=== PATIENT | male | born 1950 | race Hispanic/Latino ===

== ENCOUNTER 2024-05-16 18:12 | Inpatient (IN) | payer OTHER ==
[~2024-05-16] VITALS: Ht 185.4 cm; Wt 81.6 kg
[2024-05-16] MEDS: ONDANSETRON HCL INJ 2MG/ML 2ML 2 MG/ML VIAL IV STA (18:48)
[2024-05-16] MEDS: SODIUM CHLORIDE 0.9% 1000ML 1,000 ML IV SCH (18:52)
[2024-05-16] MEDS: Morphine 4mg INJECTION 4 MG/ML INJ IV ONE (19:11)
[2024-05-16] MEDS ORDERED: Morphine 2mg Syringe 2 MG/ML SYR ONE (19:11)
[2024-05-16 19:24] LABS: BASOPHILS % 0.3 % (0.0-1.0); EOSINOPHILS % 0.1 % (0.0-6.0); HEMATOCRIT 45.6 % (38.2-49.6); HEMOGLOBIN 15.1 g/dL (14.0-18.0); LYMPHOCYTES # (AUTO) 1.3 (1.0-3.2); LYMPHOCYTES % 12.6 % (18.0-39.1); MEAN CORPUSCULAR HEMOGLOBIN 31.4 pg (28-32); MEAN CORPUSCULAR HGB CONC 33.1 g/dL (31-35); MEAN CORPUSCULAR VOLUME 94.8 fL (81-99); MONOCYTES # (AUTO) 0.8 (0.2-0.8); MONOCYTES % 7.6 % (4.4-11.3); NEUTROPHILS % 79.3 % (38.7-80.0); PLATELET COUNT 143 x10e3/uL (140-360); RED BLOOD COUNT 4.81 x10e6/uL (4.3-5.7); RED CELL DISTRIBUTION WIDTH 12.5 % (11.7-14.4); WHITE BLOOD COUNT 10.07 x10e3/uL (4.8-10.8)
[2024-05-16 19:25] LABS: INR 0.99; PROTHROMBIN TIME 13.6 seconds (11.9-14.5)
[2024-05-16 19:26] LABS: PARTIAL THROMBOPLASTIN TIME 29.9 seconds (23.8-35.5)
[2024-05-16 19:30] LABS: COLOR,URINE YELLOW (YELLOW)
[2024-05-16 19:31] LABS: BILIRUBIN,URINE NEGATIVE (NEGATIVE); CLARITY,URINE CLOUDY (CLEAR); GLUCOSE, URINE NEGATIVE (NEGATIVE); KETONES,URINE 1+ (NEGATIVE); LEUKOCYTE ESTERASE ,URINE NEGATIVE (NEGATIVE); NITRITE,URINE NEGATIVE (NEGATIVE); PH,URINE 5.5 (5 - 7); PROTEIN,URINE DIPSTICK TRACE (NEGATIVE); URINE UROBILINOGEN 0.2 mg/dL (0.2 - 1)
[2024-05-16 19:35] LABS: AMORPHOUS SEDIMENT,URINE MODERATE (FEW); BACTERIA,URINE MANY /HPF; EPITHELIAL CELLS,URINE FEW /LPF; RBC,URINE 21-50 /HPF (0-5); URIC ACID CRYSTALS,URINE MANY (FEW)
[2024-05-16 19:36] LABS: ANION GAP 16.6 mmol/L (8-16); BILIRUBIN,TOTAL 0.7 mg/dL (0.2-1.2); CALCIUM 9.8 mg/dL (8.4-10.2); CREATININE, SERUM 1.15 mg/dL (0.72-1.25); POTASSIUM 3.6 mmol/L (3.5-5.1); TOTAL PROTEIN 8.2 g/dL (6.5-8.1)
[2024-05-16 19:42] LABS: TROPONIN I 0.001 ng/mL (0-0.300)
[2024-05-16] MEDS ORDERED: IOPAMIDOL 370 MG/ML 100 ML INFUS..BTL INJ ONE (19:52)
[2024-05-16] MEDS ORDERED: Morphine 4mg INJECTION 4 MG/ML INJ IV PRN (22:45)
[2024-05-16] MEDS ORDERED: SODIUM CHLORIDE FLUSH 10 ML SYR INJ PRN (22:45)
[2024-05-16] MEDS ORDERED: ONDANSETRON HCL INJ 2MG/ML 2ML 2 MG/ML VIAL IV PRN (22:45)
[2024-05-17] VITALS (9 sets, daily range): BP systolic 152–206; BP diastolic 68–72; PULSE 52–59; RESP 14–18; TEMP 97.3–98.5; O2SAT 97–99
[2024-05-17 03:38] LABS: BASOPHILS % 0.3 % (0.0-1.0); EOSINOPHILS % 0.4 % (0.0-6.0); HEMATOCRIT 38.2 % (38.2-49.6); HEMOGLOBIN 12.7 g/dL (14.0-18.0); LYMPHOCYTES # (AUTO) 1.4 (1.0-3.2); LYMPHOCYTES % 19.2 % (18.0-39.1); MEAN CORPUSCULAR HEMOGLOBIN 31.5 pg (28-32); MEAN CORPUSCULAR HGB CONC 33.2 g/dL (31-35); MEAN CORPUSCULAR VOLUME 94.8 fL (81-99); MONOCYTES # (AUTO) 0.7 (0.2-0.8); MONOCYTES % 10.1 % (4.4-11.3); NEUTROPHILS % 69.9 % (38.7-80.0); PLATELET COUNT 124 x10e3/uL (140-360); RED BLOOD COUNT 4.03 x10e6/uL (4.3-5.7); RED CELL DISTRIBUTION WIDTH 12.7 % (11.7-14.4)
[2024-05-17 03:51] LABS: ALBUMIN 3.2 g/dL (3.5-5.0); ANION GAP 12.7 mmol/L (8-16); BILIRUBIN,TOTAL 0.6 mg/dL (0.2-1.2); CALCIUM 8.6 mg/dL (8.4-10.2); CREATININE, SERUM 0.84 mg/dL (0.72-1.25); POTASSIUM 3.7 mmol/L (3.5-5.1)
[2024-05-17 03:57] LABS: TOTAL PROTEIN 6.5 g/dL (6.5-8.1); TROPONIN I 0.003 ng/mL (0-0.300)
[2024-05-17] MEDS ORDERED: SODIUM CHLORIDE 0.9% 1000ML 1,000 ML ONE (06:42)
[2024-05-17] MEDS: LISINOPRIL 20 MG TAB PO SCH (11:14)
[2024-05-17] MEDS: POTASSIUM CHLORIDE 20 MEQ TAB CR PO STA (14:24)
[2024-05-17] MEDS: SODIUM CHLORIDE 0.9% 1000ML 1,000 ML IV SCH (14:24)
[2024-05-17] MEDS: NIFEDIPINE CR 30 MG TAB PO SCH (15:31)
[2024-05-17 17:14] LABS: TROPONIN I 0.004 ng/mL (0-0.300)
[2024-05-18] VITALS (10 sets, daily range): BP systolic 75–159; BP diastolic 56–84; PULSE 57–144; RESP 18–20; TEMP 97.9–98.3; O2SAT 96–97
[2024-05-18 06:47] LABS: BASOPHILS % 0.5 % (0.0-1.0); EOSINOPHILS # (AUTO) 0.1 (0.0-0.4); EOSINOPHILS % 1.8 % (0.0-6.0); HEMATOCRIT 39.4 % (38.2-49.6); HEMOGLOBIN 12.8 g/dL (14.0-18.0); LYMPHOCYTES # (AUTO) 1.2 (1.0-3.2); LYMPHOCYTES % 19.8 % (18.0-39.1); MEAN CORPUSCULAR HEMOGLOBIN 31.7 pg (28-32); MEAN CORPUSCULAR HGB CONC 32.5 g/dL (31-35); MEAN CORPUSCULAR VOLUME 97.5 fL (81-99); MONOCYTES # (AUTO) 0.6 (0.2-0.8); MONOCYTES % 9.7 % (4.4-11.3); NEUTROPHILS % 67.9 % (38.7-80.0); PLATELET COUNT 130 x10e3/uL (140-360); RED BLOOD COUNT 4.04 x10e6/uL (4.3-5.7); RED CELL DISTRIBUTION WIDTH 12.3 % (11.7-14.4); WHITE BLOOD COUNT 5.95 x10e3/uL (4.8-10.8)
[2024-05-18 07:05] LABS: ALBUMIN 3.2 g/dL (3.5-5.0); ANION GAP 12.9 mmol/L (8-16); BILIRUBIN,TOTAL 0.7 mg/dL (0.2-1.2); CALCIUM 8.8 mg/dL (8.4-10.2); CREATININE, SERUM 0.79 mg/dL (0.72-1.25); POTASSIUM 3.9 mmol/L (3.5-5.1); TOTAL PROTEIN 6.5 g/dL (6.5-8.1)
[2024-05-18 07:30] LABS: THYROID STIMULATING HORMONE 1.273 uIU/mL (0.350-4.940)
[2024-05-19] VITALS (7 sets, daily range): BP systolic 137–176; BP diastolic 61–75; PULSE 50–59; RESP 17; TEMP 97.5–98.3; O2SAT 98–100
[2024-05-20] VITALS: BP_SYST 151; BP_SYST 161; BP_DIAS 70; PULSE 58; RESP 17; TEMP 97.5; O2SAT 100
[2024-05-20 04:00] VITALS: BP 150/67; PULSE 58; RESP 18; TEMP 97.5; O2SAT 96
[2024-05-20 07:42] VITALS: BP 146/65; PULSE 58; RESP 18; TEMP 97.6; O2SAT 97
[2024-05-20 08:50] VITALS: BP 146/65; PULSE 58; RESP 18; TEMP 97.6; O2SAT 97
[2024-05-20 11:30] VITALS: BP 180/87; PULSE 61; RESP 18; TEMP 97.6; O2SAT 96
[2024-05-20 15:28] VITALS: BP 128/56; PULSE 58; RESP 18; TEMP 97.7; O2SAT 99
[2024-05-20] MEDS ORDERED: NIFEDIPINE ER30 M1 PO (16:15)
[2024-05-20] MEDS ORDERED: LISINOPRIL20 MG PO (16:15)
== END 2024-05-20 17:36 | disposition home or self-care (01) | DRG 690 ==
LOC: ER 18:30 → ERHOLD 22:40 → MED/SURG3 05-17 13:50
PROVIDERS: ADMIT Internal Medicine; ATTEND Internal Medicine
DX: N13.6 Pyonephrosis (principal); I16.1 Hypertensive emergency; N12 Tubulo-interstitial nephritis, not specified as acute or chronic; R00.1 Bradycardia, unspecified; K80.20 Calculus of gallbladder without cholecystitis without obstruction; R31.29 Other microscopic hematuria; I49.1 Atrial premature depolarization; N40.0 Benign prostatic hyperplasia without lower urinary tract symptoms; I11.9 Hypertensive heart disease without heart failure; I49.3 Ventricular premature depolarization; Z82.49 Family history of ischemic heart disease and other diseases of the circulatory system
CPT/HCPCS: 36415; 74177; 80053; 81001; 82550; 83690; 83735; 84443; 84484; 85025; 85610; 85730; 87086; 93005; 93306; 94799; 99285; J0696; J2270; J2405; J7030; Q9967